=== PATIENT | female | born 1975 | race African-American/Black ===

== ENCOUNTER 2017-09-28 15:39 | Inpatient (IN) | payer MEDICARE, MEDICAID ==
[~2017-09-28] VITALS: Ht 167.6 cm; Wt 58.5 kg
[2017-09-28] MEDS ORDERED: TRAZ150T78 PO (15:48)
[2017-09-28] MEDS ORDERED: BENZ1TAB7 PO (15:48)
[2017-09-28] MEDS ORDERED: DIVA-75 PO (15:48)
[2017-09-28] MEDS ORDERED: ONDANSETRON HCL 4MG/2ML VIAL IV ONE (16:45)
[2017-09-28 18:00] LABS: BASOPHILS % 0.2 % (0.0-2.0); EOSINOPHILS % 0.1 % (0.0-5.0); HEMATOCRIT. 28.1 % (36.0-48.0); HEMOGLOBIN. 9.4 g/dL (12.0-16.0); LYMPHOCYTES % 10.9 % (20.0-50.0); MEAN CORPUSCULAR HEMOGLOBIN 22.5 pg (28.0-32.0); MEAN CORPUSCULAR VOLUME 67.6 fL (81.0-99.0); MEAN PLATELET VOLUME 8.7 fl (7.4-10.4); MONOCYTES % 6.3 % (2.0-8.0); NEUTROPHILS % 82.5 % (40.0-76.0); PLATELET 139 x1000/uL (130-400); RED BLOOD CELL COUNT 4.16 mill/uL (4.2-5.4); RED CELL DISTRIBUTION WIDTH 18.1 % (11.6-14.6)
[2017-09-28 18:03] LABS: CHLORIDE 82 mEq/L (98-107)
[2017-09-28 18:08] LABS: ETHANOL BLOOD < 10 mg/dL
[2017-09-28 18:25] LABS: PLATELET ESTIMATE NORMAL
[2017-09-28] MEDS ORDERED: SODIUM CHLORIDE 0.9% 1,000 ML IV ONE (18:30)
[2017-09-28 20:38] LABS: CLARITY URINE CLEAR (CLEAR); COLOR URINE YELLOW (YELLOW); KETONES URINE 2+ (NEGATIVE); LEUKOCYTE ESTERASE URINE NEGATIVE (NEGATIVE); NITRITE URINE POSITIVE (NEGATIVE); OCCULT BLOOD URINE NEGATIVE (NEGATIVE); PROTEIN URINE NEGATIVE (NEGATIVE); SPECIFIC GRAVITY URINE 1.009 (1.005-1.030); UROBILINOGEN URINE 0.2 E.U./dL (0.2-1.0)
[2017-09-28 20:56] LABS: *AMPHETAMINES SCREEN URINE NEGATIVE (NEGATIVE); *BARBITURATES SCREEN URINE NEGATIVE (NEGATIVE); *BENZODIAZEPINES SCREEN URINE NEGATIVE (NEGATIVE)
[2017-09-28 20:57] LABS: CANNABINOID URINE SCREEN NEGATIVE (NEGATIVE); METHADONE URINE SCREEN NEGATIVE (NEGATIVE); OPIATES URINE SCREEN NEGATIVE (NEGATIVE); PHENCYCLIDINE URINE SCREEN NEGATIVE (NEGATIVE)
[2017-09-28 21:05] LABS: *COCAINE SCREEN URINE NEGATIVE (NEGATIVE)
[2017-09-28 22:24] VITALS: BP 97/67
[2017-09-28 22:32] VITALS: BP 97/67
[2017-09-29] VITALS (10 sets, daily range): BP systolic 87–124; BP diastolic 50–76
[2017-09-29] MEDS ORDERED: LORAZEPAM 2MG/ML CPJ IV PRN (02:00)
[2017-09-29] MEDS ORDERED: SODIUM CHLORIDE 3% 500 ML IV NR (04:00)
[2017-09-29] MEDS: ENOXAPARIN 40MG/0.4ML SYR SUBCUT SCH (08:43)
[2017-09-29 10:36] LABS: BASOPHILS % 0.3 % (0.0-2.0); EOSINOPHILS % 0.2 % (0.0-5.0); HEMATOCRIT. 27.4 % (36.0-48.0); HEMOGLOBIN. 9.1 g/dL (12.0-16.0); LYMPHOCYTES % 17.9 % (20.0-50.0); MEAN CORPUSCULAR HEMOGLOBIN 22.3 pg (28.0-32.0); MEAN CORPUSCULAR VOLUME 67.6 fL (81.0-99.0); MEAN PLATELET VOLUME 8.6 fl (7.4-10.4); MONOCYTES % 9.7 % (2.0-8.0); NEUTROPHILS % 71.9 % (40.0-76.0); PLATELET 173 x1000/uL (130-400); RED BLOOD CELL COUNT 4.06 mill/uL (4.2-5.4); RED CELL DISTRIBUTION WIDTH 18.4 % (11.6-14.6)
[2017-09-29] MEDS ORDERED: DIVALPROEX SODIUM 500MG ER TABLET PO NR (11:00)
[2017-09-29 11:08] LABS: CHLORIDE 107 mEq/L (98-107)
[2017-09-29] MEDS ORDERED: POTASSIUM CHLORIDE 20MEQ TABLET SR PO NR (12:00)
[2017-09-29] MEDS ORDERED: DEXT 5% WATER 500 ML IV NR ×3 (12:00→22:30)
[2017-09-29] MEDS: LEVOFLOXACIN 500MG PREMIX 100 ML IV SCH (12:28)
[2017-09-29] MEDS: DEXTROSE 5% WATER 1,000 ML IV SCH ×2 (12:46→20:28)
[2017-09-29] MEDS ORDERED: DESMOPRESSIN ACETATE IVPB 1 MCG in SODIUM CHLORIDE 0.9% 50 ML IV NR ×2 (13:00→18:30)
[2017-09-29] MEDS ORDERED: DIVALPROEX SODIUM 500MG DR TABLET PO SCH (17:00)
[2017-09-29] MEDS ORDERED: DIVALPROEX SODIUM 500MG ER TABLET PO SCH (17:00)
[2017-09-29 17:17] LABS: CHLORIDE 108 mEq/L (98-107)
[2017-09-29] MEDS: AMOXICILLIN/POTASSIUM CLAVULANATE 875/125MG TAB PO SCH (20:23)
[2017-09-29] MEDS: BENZTROPINE MESYLATE 1MG TABLET PO SCH (20:25)
[2017-09-29] MEDS: TRAZODONE HCL 100MG TABLET PO SCH (20:27)
[2017-09-29] MEDS ORDERED: TRAZODONE HCL 100MG TABLET PO SCH (21:00)
[2017-09-29] MEDS ORDERED: BENZTROPINE MESYLATE 1MG TABLET PO SCH ×2 (21:00)
[2017-09-30] VITALS (10 sets, daily range): BP systolic 98–120; BP diastolic 38–84
[2017-09-30] MEDS: DEXTROSE 5% WATER 1,000 ML IV SCH (02:30)
[2017-09-30 06:35] LABS: CHLORIDE 98 mEq/L (98-107)
[2017-09-30 07:05] LABS: BASOPHILS % 0.5 % (0.0-2.0); EOSINOPHILS % 0.5 % (0.0-5.0); HEMATOCRIT. 25.2 % (36.0-48.0); HEMOGLOBIN. 8.3 g/dL (12.0-16.0); LYMPHOCYTES % 31.8 % (20.0-50.0); MEAN CORPUSCULAR HEMOGLOBIN 22.6 pg (28.0-32.0); MEAN CORPUSCULAR VOLUME 68.6 fL (81.0-99.0); MEAN PLATELET VOLUME 8.4 fl (7.4-10.4); MONOCYTES % 10.4 % (2.0-8.0); NEUTROPHILS % 56.8 % (40.0-76.0); PLATELET 112 x1000/uL (130-400); RED BLOOD CELL COUNT 3.68 mill/uL (4.2-5.4)
[2017-09-30] MEDS ORDERED: POTASSIUM CHLORIDE 20MEQ/PACKET PO NR (07:45)
[2017-09-30] MEDS: ENOXAPARIN 40MG/0.4ML SYR SUBCUT SCH (09:00)
[2017-09-30] MEDS: AMOXICILLIN/POTASSIUM CLAVULANATE 875/125MG TAB PO SCH ×2 (09:11→21:13)
[2017-09-30] MEDS: BENZTROPINE MESYLATE 1MG TABLET PO SCH ×2 (09:11→21:14)
[2017-09-30] MEDS: LEVOFLOXACIN 500MG PREMIX 100 ML IV SCH (10:57)
[2017-09-30] MEDS ORDERED: POTASSIUM CHLORIDE 20MEQ TABLET SR PO SCH (11:45)
[2017-09-30] MEDS: POTASSIUM CHLORIDE 20MEQ TABLET SR PO SCH (18:02)
[2017-09-30] MEDS: TRAZODONE HCL 100MG TABLET PO SCH (21:13)
[2017-09-30 22:10] LABS: CHLORIDE 109 mEq/L (98-107)
[2017-10-01] VITALS (8 sets, daily range): BP systolic 90–118; BP diastolic 56–79
[2017-10-01] MEDS: POTASSIUM CHLORIDE 20MEQ TABLET SR PO SCH (06:44)
[2017-10-01 06:46] LABS: BASOPHILS % 0.2 % (0.0-2.0); EOSINOPHILS % 0.4 % (0.0-5.0); HEMATOCRIT. 28.9 % (36.0-48.0); HEMOGLOBIN. 9.5 g/dL (12.0-16.0); LYMPHOCYTES % 20.3 % (20.0-50.0); MEAN CORPUSCULAR HEMOGLOBIN 22.7 pg (28.0-32.0); MONOCYTES % 10.5 % (2.0-8.0); NEUTROPHILS % 68.6 % (40.0-76.0); PLATELET 169 x1000/uL (130-400); RED BLOOD CELL COUNT 4.19 mill/uL (4.2-5.4); RED CELL DISTRIBUTION WIDTH 19.1 % (11.6-14.6)
[2017-10-01 07:37] LABS: CHLORIDE 107 mEq/L (98-107)
[2017-10-01 07:49] LABS: PHOSPHORUS 3.4 mg/dL (2.5-4.9)
[2017-10-01] MEDS: AMOXICILLIN/POTASSIUM CLAVULANATE 875/125MG TAB PO SCH (09:12)
[2017-10-01] MEDS: ENOXAPARIN 40MG/0.4ML SYR SUBCUT SCH (09:12)
[2017-10-01] MEDS: BENZTROPINE MESYLATE 1MG TABLET PO SCH (09:13)
[2017-10-01] MEDS ORDERED: LEVOFLOXACIN 500MG TABLET PO SCH (11:00)
== END 2017-10-01 14:55 | disposition home or self-care (01) | DRG 640 ==
LOC: EDBD 16:54 → ER 16:54 → 5EST 20:02 → EDBEDREQ 20:09 → ENRESERV 21:27 → ER 22:27 → 5EST 22:46
PROVIDERS: ADMIT Internal Medicine Geriatric Medicine; ATTEND Internal Medicine Geriatric Medicine
DX: E87.1 Hypo-osmolality and hyponatremia (principal); G93.41 Metabolic encephalopathy; E44.0 Moderate protein-calorie malnutrition; N39.0 Urinary tract infection, site not specified; F20.0 Paranoid schizophrenia; G40.909 Epilepsy, unspecified, not intractable, without status epilepticus; D50.9 Iron deficiency anemia, unspecified; E87.6 Hypokalemia; K05.6 Periodontal disease, unspecified; F31.9 Bipolar disorder, unspecified; I10 Essential (primary) hypertension; I95.9 Hypotension, unspecified; R73.9 Hyperglycemia, unspecified; Z81.8 Family history of other mental and behavioral disorders; Z79.899 Other long term (current) drug therapy; Z68.20 Body mass index [BMI] 20.0-20.9, adult
CPT/HCPCS: 36415; 70450; 70486; 71045; 80048; 80053; 80165; 80305; 81003; 82533; 82962; 83735; 83935; 84100; 84295; 84443; 84484; 85025; 87077; 87086; 87186; 93005; 96361; 96374; 97162; 99285; G0482; J1650; J1956; J2405; J2597; J3490; J7030; J7060; J7070